=== PATIENT | male | born 1985 | race Caucasian/White ===

== ENCOUNTER 2023-06-20 17:13 | Emergency (ER) | payer MEDICAID ==
[2023-06-20] MEDS: Ketorolac 30 MG/ML SDV IM ONE (17:00)
== END 2023-06-20 17:20 | disposition home or self-care (01) ==
LOC: DL.ED 17:13
DX: S16.1XXA Strain of muscle, fascia and tendon at neck level, initial encounter (principal); S00.81XA Abrasion of other part of head, initial encounter; W22.8XXA Striking against or struck by other objects, initial encounter
CPT/HCPCS: 72125; 96372; 99284; J1885

== ENCOUNTER 2023-06-20 19:33 | Emergency (ER) | payer MEDICAID ==
[2023-06-20] MEDS: Acetaminophen 325 MG Tab PO ONE (20:56)
== END 2023-06-20 21:23 | disposition home or self-care (01) ==
LOC: DL.ED 19:33
DX: S16.1XXA Strain of muscle, fascia and tendon at neck level, initial encounter (principal); X58.XXXA Exposure to other specified factors, initial encounter
CPT/HCPCS: 99283; A9270-GY